=== PATIENT | female | born 1980 ===

== ENCOUNTER 2018-08-27 16:56 | Inpatient (IN) | payer MEDICAID ==
--- NOTE | 2018-08-27 18:05 | C.PDOC ---
History Of Present Illness 28 y/o female with a PMHx of polysubstance abuse and HIV (complaint with meds), presents to the ED requesting detox. Patient abuses heroin, cocaine, and benzos. Last use was earlier today. Patient offers no complaints at this time. She denies any fevers, chills, nausea, vomiting, tremors, or body pain at this time. Time Seen by Provider: 08/27/18 17:35 Chief Complaint (Nursing): Substance Abuse History Per: Patient History/Exam Limitations: no limitations Onset/Duration Of Symptoms: Days Current Symptoms Are (Timing): Still Present Modifying Factor(s): Cocaine, Other (Benzos, Heroin) Associated Symptoms: denies: Suicidal Thoughts, Suicidal Plan Involuntary Hold By: None Past Medical History Reviewed: Historical Data, Nursing Documentation, Vital Signs Vital Signs: Last Vital Signs Temp 99.5 F 08/27/18 17:23 Pulse 87 08/27/18 17:23 Resp 18 08/27/18 17:23 BP 113/75 08/27/18 17:23 Pulse Ox 95 08/27/18 17:23 - Medical History PMH: Anxiety, Depression, HIV Other PMH: Polysubstance abuse Family History: States: No Known Family Hx - Social History Hx Alcohol Use: No Hx Substance Use: Yes - Immunization History Hx Tetanus Toxoid Vaccination: No Hx Influenza Vaccination: No Hx Pneumococcal Vaccination: No Review Of Systems Except As Marked, All Systems Reviewed And Found Negative. Constitutional: Negative for: Fever, Chills Cardiovascular: Negative for: Chest Pain Respiratory: Negative for: Shortness of Breath Gastrointestinal: Negative for: Nausea, Vomiting Musculoskeletal: Negative for: Other (tremors) Neurological: Negative for: Weakness, Dizziness Psych: Positive for: Other (Substance abuse). Negative for: Suicidal ideation (or homicidal) Physical Exam - Physical Exam Appears: Non-toxic, No Acute Distress, Other (Awake, Alert, Cooperative) Skin: Warm, Dry, No Rash Head: Atraumatic, Normacephalic Eye(s): bilateral: Normal Inspection, PERRL, EOMI Oral Mucosa: Moist Neck: Normal ROM Chest: Symmetrical Cardiovascular: Rhythm Regular, No Murmur Respiratory: Normal Breath Sounds, No Rales, No Rhonchi, No Wheezing Gastrointestinal/Abdominal: Soft, No Tenderness, No Distention Extremity: Bilateral: Atraumatic, Normal ROM (x4) Neurological/Psych: Oriented x3, Normal Speech ED Course And Treatment - Laboratory Results Result Diagrams: 08/27/18 18:13 08/27/18 18:13 O2 Sat by Pulse Oximetry: 95 (RA) Pulse Ox Interpretation: Normal Medical Decision Making Medical Decision Making: Impression: Polysubstance abuse, requesting detox Plan: Labs sent for medical clearance. Pending evaluation by crisis team. Disposition Counseled Patient/Family Regarding: Diagnosis - Disposition Disposition: HOSPITALIZED Disposition Time: 18:51 Condition: GUARDED Forms: [facility] (Togolese) - Clinical Impression Clinical Impression: Drug dependence, Drug abuse - Scribe Statement The provider has reviewed the documentation as recorded by the Karlos Martinez Provider Attestation: All medical record entries made by the Elmaibelissa were at my direction and personally dictated by me. I have reviewed the chart and agree that the record accurately reflects my personal performance of the history, physical exam, medical decision making, and the department course for this patient. I have also personally directed, reviewed, and agree with the discharge instructions and disposition. Physician Patient Turnover Patient Signed Over To: Nancie Haas Handoff Comments: pending final dispo by crisis
[2018-08-27 18:18] LABS: BASO % 0.4 % (0.0-2.0)
[2018-08-27 18:25] LABS: EOS % 0.2 % (0.0-4.0); HEMOGLOBIN 13.4 g/dL (11.0-16.0); LYMPH # 1.9 K/uL (1.0-4.3); LYMPH % 39.5 % (20.0-40.0); MEAN CELL VOLUME 90.8 fL (81.0-99.0); MEAN CORPUSCULAR HEMOGLOBIN 30.2 pg (27.0-31.0); MEAN CORPUSCULAR HGB CONC 33.3 g/dL (33.0-37.0); MEAN PLATELET VOLUME 8.9 fL (7.2-11.7); MONO # 0.5 K/uL (0.0-0.8); MONO % 10.5 % (0.0-10.0); NEUT # 2.4 K/uL (1.8-7.0); NEUT % 49.4 % (50.0-75.0); NRBC % 0.4 % (0.0-2.0); RBC 4.45 Mil/uL (3.80-5.20); WHITE BLOOD COUNT 4.8 K/uL (4.8-10.8)
[2018-08-27 18:30] LABS: SQUAMOUS EPITHIAL 3 /hpf (0-5); URINE BACTERIA RARE (<OCC); URINE BILIRUBIN NEGATIVE (NEGATIVE); URINE BLOOD NEGATIVE (NEGATIVE); URINE CLARITY Hazy (Clear); URINE COLOR Amber (YELLOW); URINE GLUCOSE (UA) NORMAL (Normal); URINE LEUKOCYTE ESTERASE NEG Leu/uL (Negative); URINE PROTEIN 1+ mg/dL (NEGATIVE)
[2018-08-27 18:33] LABS: ALB/GLOB RATIO 1.2 (1.0-2.1); ALBUMIN 4.3 g/dL (3.5-5.0); ALT/SGPT 39 U/L (9-52); AST/SGOT 48 U/L (14-36); BLOOD UREA NITROGEN 22 mg/dL (7-17); CALCIUM 8.9 mg/dl (8.6-10.4); GFR NON-AFRICAN AMERICAN > 60
[2018-08-27 18:47] LABS: BARBITURATES, UR NEGATIVE (NEGATIVE); BENZODIAZEPINES, UR NEGATIVE (NEGATIVE); PHENCYCLIDINE, UR NEGATIVE (NEGATIVE)
[2018-08-27] MEDS ORDERED: Atazanavir 300 mg Cap PO SCH (19:06)
[2018-08-27] MEDS ORDERED: Abacavir/Lamivudine 600 mg-300 mg Tab PO SCH (19:15)
[2018-08-27] MEDS ORDERED: Atazanavir 300 mg Cap PO ONE (19:15)
[2018-08-27] MEDS ORDERED: Abacavir/Lamivudine 600 mg-300 mg Tab PO ONE (19:15)
[2018-08-27 19:25] LABS: OPIATES, UR POSITIVE (NEGATIVE)
--- NOTE | 2018-08-27 20:24 | PCM.BM ---
<Karina Barnett - Last Filed: 08/27/18 20:22> Treatment Plan Problems - Problems identified on initial assessmt Defensive Coping Date Initiated: 08/27/18 Time Initiated: 20:23 Assessment reference: NA Status: Active Ineffective Family coping: compromised Date Initiated: 08/27/18 Time Initiated: 20:23 Assessment reference: NA Status: Active Treatment assets and liabiliti Patient Assests: ADL independent, negotiates basic needs, cognitively intact Patient Liabilities: substance abuse - Milieu Protocol Maintain good personal hygiene: daily Encourage regular showers, daily Remind patient to perform daily oral care, daily Assist patient to perform ADL's Conduct patient checks and document Observation sheet: Q15 minutes Maintain personal safety: every shift Educate patient to report safety concerns to staff, every shift Monitor environment for contraband/sharps Medication safety: Monitor for expected outcome, potential side effects: every shift, Assess barriers to learning: every shift, Assess readiness for medication education: every shift <Diann Suero - Last Filed: 08/30/18 14:28> Family Contact Family involvement: Family/SO is involved Family contact name: boyfriend Family contacted how many times per week?: 2 - Goals for Treatment Patient goals for treatment: Complete detox and transition to an outpatient program. Discharge/Continuing Care - Education Needs Education Needs: Patient Medication, Patient Diagnosis/Disease Process, Patient Coping Skills, Patient Anger Management skills, Patient Placement options, Patient Community resources, Significant Other Diagnosis/Disease Process, Significant Other Community resources - Discharge Discharge Criteria: No longer exhibiting s/s of withdrawal, Reduction of target symptoms Discharge to:: Home - Treatment Team Participation Patient/Family/SO Statement: 08/30/18 14:29 "[facility] go to [facility]... Discussed with Family/SO: No Was Patient/Family/SO present at Treatment Team Meeting: Yes <Roosevelt Frazier - Last Filed: 08/31/18 10:06> - Diagnosis (1) Opioid use disorder, severe, dependence Status: Acute Interventions: 08/28/18 18:05 * Assess 7x/week regarding severity of withdrawal * Educate regarding risks, benefits, side effects and alternatives of medications * Use Motivational Interviewing for abstinence * Use CBT for relapse prevention * Medication management for withdrawal symptoms * Encourage medication assisted treatment *
[2018-08-27] MEDS ORDERED: Aluminum Hydroxide/Magnesium Hydroxide Susp (30 mL) PO PRN (21:55)
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
[2018-08-28] MEDS: Atazanavir 300 mg Cap PO SCH ×3 (13:38→17:30)
[2018-08-28] MEDS: Abacavir/Lamivudine 600 mg-300 mg Tab PO SCH ×3 (13:39→17:40)
[2018-08-28] MEDS ORDERED: Abacavir/Lamivudine 600 mg-300 mg Tab PO SCH (15:00)
[2018-08-28] MEDS ORDERED: Atazanavir 300 mg Cap PO SCH (15:00)
--- NOTE | 2018-08-29 08:53 | PCM.PYCHPN ---
Psychiatric Progress Note - Psychiatric Progress Note Patient Chief Complaint: "I need to stop this" Medication Change: Yes Medical Record Reviewed: Yes Mental Status Examination - Cognitive Function Orientation: Person, Place, Situation, Time - Mood Mood: Depressed, Anxious - Affect Affect: Constricted - Formal Thought Process Formal Thought Process: No Impairment Goal/Treatment Plan - Goal/Treatment Plan Progress Toward Problem(s) and Goals/Treatment Plan: Taper with Methadone Gabapentin for augmentation Start home for HIV treatment As needed medications Clonidine, Atarax, and Motrin As needed Librium Ativan for anti-anxiolytic withdrawal Trazodone for insomnia All risks, benefits and alternatives of the meds discussed, and the pt agreed and understood. Attend groups and activities Supportive therapy and psychoeducation [facility] for abstinence CBT for relapse prevention Encourage MAT Refer to outpatient rehab in [place], and self-help groups Teach healthy lifestyle methods, i.e. diet, exercise, meditation Smoking cessation with PR Nicotine patch if needed 35 min
[2018-08-29] MEDS ORDERED: Influenza Vaccine 60 mcg/0.5 mL SYR (4YR UP) IM ONE (10:00)
[2018-08-29] MEDS ORDERED: Pneumococcal 23-Valent Vaccine IM ONE (10:00)
[2018-08-29] MEDS: Atazanavir 300 mg Cap PO SCH (17:08)
[2018-08-29] MEDS: Abacavir/Lamivudine 600 mg-300 mg Tab PO SCH (17:08)
[2018-08-30] MEDS: Atazanavir 300 mg Cap PO SCH (18:32)
[2018-08-30] MEDS: Abacavir/Lamivudine 600 mg-300 mg Tab PO SCH (18:45)
[2018-08-30 20:16] VITALS: BP 104/70; PULSE 95; RESP 19; TEMP 98; O2SAT 96
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
== END 2018-08-30 21:45 | disposition home or self-care (01) | DRG 745 ==
LOC: C.ER 16:56 → C.7D 19:57
PROC: GZHZZZZ Group Psychotherapy (ICD-10-PCS; principal; 2018-08-27)
PROC: GZ56ZZZ Individual Psychotherapy, Supportive (ICD-10-PCS; 2018-08-27)
DX: F11.23 Opioid dependence with withdrawal (principal); F12.90 Cannabis use, unspecified, uncomplicated; F14.90 Cocaine use, unspecified, uncomplicated; F32.9 Major depressive disorder, single episode, unspecified; F43.10 Post-traumatic stress disorder, unspecified; F64.9 Gender identity disorder, unspecified; G47.00 Insomnia, unspecified; Z72.0 Tobacco use

== ENCOUNTER 2018-10-08 16:21 | Emergency (ER) | payer MEDICAID ==
[2018-10-08 17:15] VITALS: BP 108/75; PULSE 96; RESP 18; TEMP 98.2; O2SAT 100
== END 2018-10-08 18:50 | disposition left against medical advice (07) ==
LOC: C.ER 16:21
DX: Z02.89 Encounter for other administrative examinations (principal); F11.10 Opioid abuse, uncomplicated